=== PATIENT | female | born 1990 | race Caucasian/White ===

== ENCOUNTER 2018-02-28 11:42 | Inpatient (IN) ==
[2018-03-01] MEDS ORDERED: CARBOPROST 250 MCG/ML INJECTION IM PRN (06:05)
[2018-03-01] MEDS ORDERED: METHYLERGONOVINE 0.2 MG/ML INJECTION IM PRN (06:05)
[2018-03-01] MEDS ORDERED: MAG-AL + SIM ORAL LIQUID 30ml PO PRN (06:05)
[2018-03-01] MEDS ORDERED: LIDOCAINE 1% (10mg/ml) 2mL INJ PF SDV ID PRN (06:05)
[2018-03-01] MEDS ORDERED: ACETAMINOPHEN 500 MG TABLET PO PRN (06:05)
[2018-03-01] MEDS ORDERED: CALCIUM CARBONATE Chewable 500mg TABLET PO PRN (06:05)
[2018-03-01] MEDS ORDERED: SALINE FLUSH 10ml SYRINGE IV PRN (06:07)
[2018-03-01] MEDS ORDERED: HYDROCODONE/APAP 5mg/325mg TABLET PO PRN (06:07)
[2018-03-01] MEDS ORDERED: ZOLPIDEM 5 MG TABLET PO PRN (06:07)
[2018-03-01] MEDS: LR 1,000 ML IV PRN ×4 (06:17→17:13)
[2018-03-01] MEDS ORDERED: OXYTOCIN DRIP 30 UNIT/500 ML ML IV PRN (06:35)
[2018-03-01] MEDS: D5LR 1,000 ML IV PRN ×2 (06:45→16:14)
[2018-03-01 06:52] VITALS: BMI 33.9
[2018-03-01] MEDS ORDERED: NALOXONE 0.4 MG/ML INJECTION IVP PRN (08:53)
[2018-03-01] MEDS ORDERED: ROPIVACAINE 1% 10MG/ML INJ 200 MG, SUFentanil 50 MCG in NS 100 ML EPI PRN (08:53)
[2018-03-01] MEDS ORDERED: DiphenhydrAMINE 50 MG/ML INJECTION IVP PRN (08:53)
[2018-03-01] MEDS ORDERED: ONDANSETRON 4 MG/2 ML INJECTION IVP PRN (08:53)
--- NOTE | 2018-03-01 08:53 | Anesthesia Preoperative Report ---
Anesthesia Epidural/Spinal Rec - Date and Time Date: 03/01/18 Preoperative Diagnosis: induction Procedure: Labor Epidural Plan: Epidural - Vital Signs Vital Signs: Temperature 98.7 F 03/01/18 06:27 Pulse Rate 84 03/01/18 06:27 Respiratory Rate 16 03/01/18 06:27 Blood Pressure 117/55 03/01/18 06:27 Pulse Oximetry 98 03/01/18 06:27 /Para: P:1 - Medictaions & Allergies Inpatient Medications: Current Medications Acetaminophen (Tylenol) 500 - 1,000 mg PO Q4H PRN PRN Reason: Pain Hydrocodone Bitart/Acetaminophen ([place] 5/325) 1 - 2 tab PO Q4H PRN PRN Reason: Pain Al Hydroxide/Mg Hydroxide (Maalox Plus) 30 ml PO Q3H PRN PRN Reason: Indigestion Calcium Carbonate (Tums) 500 - 1,000 mg PO Q2H PRN PRN Reason: Indigestion Carboprost Tromethamine (Hemabate) 250 mcg IM O PRN PRN Reason: .Downtime Lactated Ringer's (Lactated Ringers) 1,000 mls @ 999 mls/hr IV .Q1H1M PRN Dextrose/Lactated Ringer's (Dextrose 5%-Lactated Ringers) 1,000 mls @ 125 mls/ hr IV .Q8H PRN PRN Reason: Labor Oxytocin (Pitocin Drip) 30 unit in 500 mls @ 2 mls/hr IV .Q24H PRN; Protocol PRN Reason: Induction/Augmentation Lidocaine HCl (Xylocaine-Mpf 1% Vial) 0.2 mg ID O PRN PRN Reason: IV Start Methylergonovine Maleate (Methergine) 0.2 mg IM O PRN Misoprostol (Cytotec) 800 mcg ND ONCE PRN Sodium Chloride (Iv Flush) 10 - 80 ml IV PRN PRN PRN Reason: Flushing Zolpidem Tartrate (Ambien) 5 mg PO O PRN PRN Reason: Insomnia Allergies/Adverse Reactions: Allergies Allergy/AdvReac Type Severity Reaction Status Date / Time NKDA Allergy Unknown Uncoded 03/01/18 06:53 - Home Medications Home Medications: Home Medications Medication Instructions Recorded Confirmed Type Vit No.130/Iron/Folic 1 tab PO DAILY #0 tab 11/13/14 03/01/18 History [ Tablet] - Medical History Respiratory: Reports: Asthma (activity induced) Other History: Reports: Anesthesia Reactions (nausea), Now - Surgical History Reproductive Surgery/Treatment: DENIES: Section Anesthesia Reactions: None Hx Family Anesthesia Reaction: No History of Motion Sickness: No - Social History Smoking Status: Never smoker Second Hand Exposure: No Substance Use Type: does not use Alcohol Intake Frequency: does not drink Hx Chewing Tobacco Use: No - Pertinent Findings Lab Data: CBC and BMP 03/01/18 06:17 - Physical Exam Respiratory Exam: lungs clear Cardiovascular Exam: regular rate and rhythm, no murmur - Airway Assessment Mallampati Score: II TMD: 3 Fingerbreadths Neck Extension: good Overall Assessment: no airway concerns - ASA ASA Score: 2 - Discussion Discussion: Discussed risks/options/alternatives of anesthesia and questions answered. Patient consents. Nursing pain assessment noted. Anesthesia Discussion: spouse Attestation Statement: Prior to the delivery of any anesthetic medication, I examined the patient, developed the plan, obtained the patient's consent and discussed the risk and benefits of the procedure with the patient/guardian.
[2018-03-01] MEDS ORDERED: NOZIN NASAL SWAB NAS ONE ×2 (22:43)
[2018-03-01] MEDS ORDERED: AZITHROMYCIN IV 500 MG in NS 250ml 250 ML IV ONE (22:43)
[2018-03-01] MEDS ORDERED: CITRIC ACID/SODIUM CITRATE 30ml PO ONE (22:43)
[2018-03-01] MEDS ORDERED: CEFAZOLIN PREMIX (MC ONLY) 2 GM/50 ML BAG IV ONE (22:43)
[2018-03-01] MEDS ORDERED: FAMOTIDINE PB 20 MG/50 ML BAG IV ONE (22:43)
[2018-03-01] MEDS ORDERED: LIDOCAINE 2%/EPI 1:200,000 20ml SDV PF ONE (22:48)
[2018-03-01] MEDS ORDERED: FentaNYL 250 MCG/5 ML INJECTION ONE (22:48)
[2018-03-01] MEDS ORDERED: OXYTOCIN BOLUS BAG 30 UNIT/500 ML ML IV SCH (23:20)
[2018-03-01] MEDS ORDERED: METOCLOPRAMIDE 10mg/2ml INJECTION ONE (23:29)
[2018-03-01] MEDS ORDERED: TRANEXAMIC ACID 1,000 MG in NS 100 ML IV ONE (23:36)
[2018-03-01] MEDS ORDERED: MIDAZOLAM 2mg/2ml INJECTION ONE (23:59)
[2018-03-02] MEDS ORDERED: MORPHINE SULFATE PF 5mg/10ml INJ (Duramorph) ONE (00:13)
[2018-03-02] MEDS: D5LR 1,000 ML IV SCH ×3 (00:25→23:20)
[2018-03-02] MEDS ORDERED: ACETAMINOPHEN 500 MG TABLET PO PRN (01:55)
[2018-03-02] MEDS ORDERED: ONDANSETRON ODT 4 MG TABLET PO PRN (01:55)
[2018-03-02] MEDS ORDERED: OXYTOCIN DRIP 30 UNIT/500 ML ML IV SCH (01:55)
[2018-03-02] MEDS ORDERED: SIMETHICONE 80 MG CHEWABLE TABLET PO PRN (01:55)
[2018-03-02] MEDS ORDERED: METOCLOPRAMIDE 10mg/2ml INJECTION IVP PRN (01:55)
[2018-03-02] MEDS ORDERED: DiphenhydrAMINE 25 MG CAPSULE PO PRN (01:55)
[2018-03-02] MEDS ORDERED: CALCIUM CARBONATE Chewable 500mg TABLET PO PRN (01:55)
[2018-03-02] MEDS ORDERED: HYDROCORTISONE 2.5% CREAM 30gm RECTALLY PRN (01:55)
[2018-03-02] MEDS ORDERED: SALINE FLUSH 10ml SYRINGE IV PRN (01:55)
[2018-03-02] MEDS: IBUPROFEN 800 MG TABLET PO PRN ×3 (03:45→21:10)
[2018-03-02] MEDS ORDERED: NOZIN NASAL SWAB NAS SCH (06:00)
--- NOTE | 2018-03-02 08:24 | OB/GYN Progress Note ---
OB-PP Progress Note - General PPD1 Maternal Group B Strep: Negative - Subjective Date: 03/02/18 Lochia: Minimal Pain: controlled Voiding: aguiar still in place - Objective Vital Signs: Last Vital Signs Temp 98.7 F 03/02/18 03:30 Pulse 82 03/02/18 04:39 Resp 20 03/02/18 04:39 BP 114/56 03/02/18 04:39 Pulse Ox 100 03/02/18 04:39 General: alert and oriented Abdomen: fundus firm, non-tender Incision: dressed Extremities: non-tender Laboratory: Laboratory Results - last 24 hr 03/01/18 03/02/18 06:17 05:48 WBC 15.3 H D RBC 2.54 L Hgb 7.4 L D Hct 23.5 L D MCV 92.5 MCH 29.1 MCHC 31.5 RDW Std Deviation 46.8 Plt Count 196 MPV 10.3 Blood Type A Positive Antibody Screen Negative Crossmatch (AHG) See Detail - Assessment (1) Status post primary low transverse section Status: Acute (2) Acute blood loss anemia Status: Acute - Plan Plan: routine care, iron She will need help getting out of bed until she is steady on her feet due to the anemia. The surgery was explained to the patient and her family.
[2018-03-02] MEDS: SIMETHICONE 80 MG CHEWABLE TABLET PO SCH ×3 (08:48→21:09)
[2018-03-02] MEDS: IRON POLYSACCHARIDE COMPLEX 150 MG CAPSULE PO SCH (08:48)
[2018-03-02] MEDS: HYDROCODONE/APAP 5mg/325mg TABLET PO PRN ×3 (08:50→17:34)
[2018-03-02] MEDS: DOCUSATE CALCIUM 240 MG CAPSULE PO SCH (12:08)
--- NOTE | 2018-03-02 15:13 | Operative Note ---
DATE OF OPERATION 03/01/2018 PREOPERATIVE DIAGNOSIS 1. 27-year-old 2, para 1 at 39 weeks 1 day gestational age. 2. Arrest of descent. POSTOPERATIVE DIAGNOSIS 1. 27-year-old 2, para 1 at 39 weeks 1 day gestational age. 2. Arrest of descent. PROCEDURE Primary low transverse section. SURGEON Lisa Kauffman MD BETTING [employer]Y MANAGER Chacorta Donovan MD ANESTHESIA Epidural by Jean Pierre Coates CRNA COMPLICATIONS None EBL 1000 mL FINDINGS Viable female , cephalic OP position, clear fluids, Apgars 8/9, weight 3092 grams, name "Lacy". Normal appearing uterus, tubes and ovaries. INDICATIONS The patient was brought in the morning of 03/01/2018 for an induction with both Pitocin and a Roe bulb cervical ripening due to her fear of delivering on the road. After a few hours, the Roe bulb was expelled. She received an epidural. Her membranes were ruptured artificially returning clear fluids. The Pitocin had to be turned down and then off at different points during the day due to late decelerations. An IUPC was placed to help titrate the Pitocin. She progressed very slowly throughout labor. When she got to be complete, she pushed for an hour and had no descent past the +1 station. She was very tired and we labored down for another hour. She then resumed pushing and we still had no descent. The head was too high for an operative vaginal delivery, so she consented for a section. DESCRIPTION OF PROCEDURE The patient was taken back to the operating room where her epidural was brought up to adequate surgical levels. She already had a Roe catheter in place. She was prepared and draped in the normal sterile fashion. A Pfannenstiel skin incision was made and carried down to the fascia. The fascia was incised in the midline and extended laterally with the Norton scissors. The fascia was elevated and the underlying rectus muscles were dissected off. The peritoneum was entered with a combination of sharp and blunt dissection. This was extended superiorly and inferiorly with good visualization of the bladder. The bladder blade was inserted. A bladder flap was created sharply and the bladder blade was reinserted. The lower uterine segment was incised transversely layer by layer with a scalpel and bluntly extended. The 's head was wedged in the pelvis. It was delivered atraumatically. The nose and mouth were suctioned. The cord was clamped and cut. The infant was handed to Dr. Mayberry who was asked to attend due to the unscheduled . The placenta delivered spontaneously. The uterus was exteriorized and cleared of all clots and debris. She was found to have small extensions into the bilateral uterine vasculature. These were clamped with ring forceps. The left uterine vessel was grasped with a right angle. This was suture ligated with 2-0 chromic. The left half of the incision was then closed with running [address] Donovan then started the repair of the small right uterine extension. At least twice a vessel was grasped with a right angle and suture ligated with 2-0 chromic. Between this and suturing with the 0 Monocryl, we were finally able to get the bleeding in the right side of the uterus under control. The remainder of the uterus was closed with running locked 0 Monocryl. A second layer of 0 Monocryl was placed to imbricate and reinforce the incision. Good hemostasis was noted. The bladder flap was closed with running 3-0 Vicryl. The uterus was returned to the abdomen. The gutters were cleared of all clots and debris. The uterine incision was inspected one final time and still noted to be hemostatic. The peritoneum was closed with running 2-0 Vicryl. Hemostasis was obtained in the rectus muscles with the cautery. The fascia was closed with running 0 Vicryl. Hemostasis was obtained in the subcutaneous tissue with the cautery. The skin was closed with 4-0 Vicryl in a subcuticular manner. Dermabond was placed. Sponge, sharp and instrument counts were correct. The patient tolerated the procedure well and was taken to the recovery room in good condition. JOHN
[2018-03-03] MEDS: HYDROCODONE/APAP 5mg/325mg TABLET PO PRN ×4 (03:20→17:18)
[2018-03-03] MEDS: IBUPROFEN 800 MG TABLET PO PRN ×2 (07:26→17:18)
[2018-03-03] MEDS: DOCUSATE CALCIUM 240 MG CAPSULE PO SCH (07:27)
[2018-03-03] MEDS: SIMETHICONE 80 MG CHEWABLE TABLET PO SCH ×2 (09:30→13:11)
[2018-03-03] MEDS: IRON POLYSACCHARIDE COMPLEX 150 MG CAPSULE PO SCH (09:31)
--- NOTE | 2018-03-03 11:07 | OB/GYN Progress Note ---
OB-PP Progress Note - General PPD2 POD:: POD2 Maternal Group B Strep: Negative Maternal blood type: A+ Maternal Rubella Status: Immune - Subjective Date: 03/03/18 Lochia: Minimal Pain: controlled Voiding: voiding Nausea or Vomiting Present: No - Objective Vital Signs: Last Vital Signs Temp 97.7 F 03/03/18 07:30 Pulse 84 03/03/18 07:30 Resp 14 03/03/18 07:30 BP 112/65 03/03/18 07:30 Pulse Ox 100 03/03/18 07:30 Urine Output: good General: alert and oriented Respiratory: non-labored Abdomen: fundus firm, non-tender, soft Incision: clean, dry, intact Extremities: non-tender Edema: none Laboratory: Laboratory Results - last 48 hr 03/01/18 03/02/18 06:17 05:48 WBC 15.3 H D RBC 2.54 L Hgb 7.4 L D Hct 23.5 L D MCV 92.5 MCH 29.1 MCHC 31.5 RDW Std Deviation 46.8 Plt Count 196 MPV 10.3 Blood Type A Positive Antibody Screen Negative Crossmatch (AHG) See Detail - Assessment (1) Status post primary low transverse section Status: Acute (2) Acute blood loss anemia Status: Acute - Assessment Assessment: SP, Primary C/S - Plan Plan: routine care, discharge home Expected date of discharge: 03/03/18 Pt doing well desires dismissal today. Will round this evening if doing well and desires will dismiss to home. FESO4 for anemia
--- NOTE | 2018-03-03 15:14 | Anesthesia Postoperative Note ---
- Date and Time Date: 03/03/18 Time: 15:12 - Status Patient Participated in Evaluation: Patient Participated in Person Vital Signs: Temperature 98.1 F 03/03/18 11:00 Pulse Rate 85 03/03/18 11:00 Respiratory Rate 16 03/03/18 11:00 Blood Pressure 110/62 03/03/18 11:00 Pulse Oximetry 98 03/03/18 11:00 Respiratory Function: Airway Patent, Regular Respirations Cardiovascular Function: Regular Pulse Mental Status: Alert and Oriented Pain Intensity: 0 Hydration: Taking PO Fluids Complications During Recover: None Apparent Post Anesthesia Care Notes: ambulatory without problems - Follow-Up Instructions Instructions: Per Surgeon
[2018-03-03 16:59] VITALS: BP 114/63; PULSE 74; RESP 18; TEMP 98.2; O2SAT 99
== END 2018-03-03 19:00 | disposition home or self-care (01) | DRG 765 ==
LOC: MC 03-01 05:49
PROVIDERS: ADMIT Obstetrics & Gynecology; ATTEND Obstetrics & Gynecology